=== PATIENT | female | born 1965 | race Caucasian/White ===

== ENCOUNTER 2024-11-16 15:51 | Outpatient (REF) | payer OTHER, SELFPAY ==
--- OUTSIDE RECORDS SUMMARY | 2024-11-16 19:09 | XMS_ITS | Clinical Summary ---
Author Organization [address] Address [address] [place] [phone] Phone Care Team Providers Care Administrative Services Coordinator Name Role Phone Jose Benitez MD Primary Care Provider [phone] Allergies Active Allergy Reactions Criticality Noted Date Comments Amlodipine 03/09/2019 Leg Swelling Erythromycin 11/27/2018 Other Reaction(s): Rash/Dermatitis Lisinopril 08/09/2008 cough Pioglitazone 07/01/2010 dizziness Sitagliptin 08/07/2020 Abdominal pain Medications atorvastatin (LIPITOR) 40 mg tablet Take 1 tablet (40 mg total) by mouth. 4 Active dulaglutide (Trulicity) 0.75 mg/0.5 mL pen injector injection Inject 0.5 mL (0.75 mg total) under the skin. 4 Active FLUoxetine (PROzac) 20 mg capsule Take 1 capsule (20 mg total) by mouth 1 (one) time each day. 4 Active hydroCHLOROthia zide (HYDRODIURIL) 25 mg tablet Take 1 tablet (25 mg total) by mouth 1 (one) time each day. 4 Active FREESTYLE LANCETS MISC Use once daily to check blood sugar 3 Active blood sugar diagnostic (FreeStyle Lite Strips) test strip Use once daily to check blood sugar 3 Active levothyroxine (SYNTHROID, LEVOTHROID) 100 mcg tablet Take 1 tablet (100 mcg total) by mouth. 4 Active metFORMIN (GLUCOPHAGE) 1,000 mg tablet Take 1 tablet (1,000 mg total) by mouth. 4 Active olmesartan (BENICAR) 40 mg tablet Take 1 tablet (40 mg total) by mouth 1 (one) time each day. 4 Active omeprazole (PriLOSEC) [address] capsule Take 1 capsule (20 mg total) by mouth. 8 Active atorvastatin (LIPITOR) 80 mg tablet Take 1 Tablet by mouth daily for 360 days. 4 02/16/20 25 Active dulaglutide (Trulicity) 0.75 mg/0.5 mL pen injector injection Inject 0.75 mg into the skin every 7 days. 4 Active levothyroxine (SYNTHROID, LEVOTHROID) 100 mcg tablet Take 1 Tablet by mouth every morning (before breakfast). 4 Active metFORMIN (GLUCOPHAGE) 1,000 mg tablet Take 1 Tablet by mouth 2 times daily (with meals). 4 Active meclizine (ANTIVERT) 12.5 mg tablet Take 1 tablet (12.5 mg total) by mouth 3 (three) times a day if needed for dizziness. 30 tablet 4 08/01/20 25 Active levothyroxine (SYNTHROID, LEVOTHROID) 100 mcg tablet TAKE ONE TABLET BY MOUTH EVERY MORNING BEFORE BREAKFAST 90 tablet 1 4 Active Active Problems Problem Noted Date Diagnosed Date Type II or unspecified type diabetes mellitus with neurological manifestations, uncontrolled(250.62) 06/22/2024 Leiomyoma of uterus 11/26/2023 Anxiety and depression 04/27/2023 Systolic murmur 11/30/2022 Microalbuminuria 08/31/2022 CKD (chronic kidney disease) stage 3, GFR 30-59 ml/min 08/31/2022 Obesity (BMI 30-39.9) 11/23/2017 Type II diabetes mellitus with renal manifestati ons 11/23/2017 Mixed hyperlipidemia 11/23/2008 Carpal tunnel syndrome 07/11/2008 Overview (11/26/2023): Abnormal nerve conduction, right wrist, 10/18/2007 Essential hypertension, benign 07/02/2008 Hypothyroidism 07/02/2008 Overview (11/26/2023): 0nset 1990 Fibroid 07/02/2008 Overview (11/26/2023): Embolization Immunizations Name Administration Dates Next Due Influenza Quadravalent, MDCK , 0.5ml, preservative free (Flucelvax) 6mo and older 05/26/2023,08/31/2022,09/05/2021,08/07,08/06/2019,06/06/2018 Influenza Quadravalent, MDCK , 0.5ml, with preservative (Flucelvax) 6mo and older 05/26/2017 Influenza trivalent, 0.5mL ( Fluzone High-dose) 65yo and older 08/10/2016,07/29/2015,07/11/2012,06/23,06/05/2010,06/10/2009,07/02/2008 Influenza trivalent, with pr eservative (Fluzone; Afluria) 6mo and older 08/10/2016,07/29/2015,07/11/2012,06/23,06/05/2010,06/10/2009,07/02/2008 PPD Test 10/10/2018 Pneumococcal polysaccharide 23 valent (Pneumovax 23) 2yo and older 06/10/2009 Tdap Tetanus diptheria acell ular pertussis (Boostrix; Adacel) 7yo and older 08/07/2020,06/05/2010 Surgical History Surgery Date Site/Laterality Comments OTHER SURGICAL HISTORY 11/18/2004 PROCEDURE: UTERINE FIBROID EMBOLIZATION PERQ W/RAD GID Medical History Medical History Date Comments PCOS (polycystic ovarian syndrome) DX:PCOS (polycystic ovarian syndrome) Type II or unspecified type diabetes mellitus with unspecified complication, not stated as uncontrolled DX:Type II or unspecified t ype diabetes mellitus with unspecified complication, not stated as uncontrolled Unspecified essential hypertension DX:Unspecified essential hypertension Leiomyoma of uterus DX:Leiomyoma of uterus Family History Medical History Relation Name Comments Hypertension Father Other: CAD Maternal Grandfather Thyroid disease Maternal Grandfather Arthritis Mother Thyroid disease Mother Hypothyroidi sm Relation Name Status Comments Father Maternal Grandfather Mother Social History Tobacco Use Types Packs/Day Years Used Date Smoking Tobacco: Former Cigarettes Q uit: 09/20/1997 Smokeless Tobacco: Never Tobacco Cessation:Counseling Given: Not Answered Alcohol Use Standard Drinks/Week Comments Yes 0 (1 standard drink = 0.6 oz pur e alcohol) Housing Instability Answer Date Recorde d Are you worried that in the next 2 months you may not have stable housing? No 07/31/2024 Food Access & Nutrition Answer Date Rec orded Do you have access to a vari ety of food including fruits and vegetables? Yes 07/31/2024 Access to Healthcare Answer Date Record ed Within the last 3 months, ho w many times did you visit the emergency department for your medical care? 0 07/31/2024 Health Literacy Answer Date Recorded How often do you need to hav e someone help you when you read instructions, pamphlets, or other written material from your doctor or pharmacy? Never 07/31/2024 Caregiver: How often do you need to have someone help you when you read instructions, pamphlets, or other written material from your doctor or pharmacy? Not on file 07/31/2024 Financial Risk Answer Date Recorded How hard is it for you to pa y for the very basics like food, housing, medical care, and air conditioning / heating? Not very hard 07/31/2024 Transportation Answer Date Recorded Has the lack of transportati on kept you from meetings, work, or from getting things needed for daily living? No Has the lack of transportati on kept you from medical appointments or from getting medications? No 07/31/2024 Social Isolation Answer Date Recorded How often do you feel lonely or isolated from those around you? Sometimes 07/31/2024 Food Risk Answer Date Recorded Within the past 12 months we worried whether our food would run out before we got money to buy more. Never true 07/31/2024 Within the past 12 months th e food we bought just didn't last and we didn't have money to get more. Never true 07/31/2024 Dependent Care Answer Date Recorded Do you need help finding or paying for care for your loved ones. For example, child care director or elderly care for an older adult? No 07/31/2024 Education Answer Date Recorded Do you think completing more education or training, like finishing a GED, going to college, or learning a trade, would be helpful for you? No 07/31/2024 Employment and Income Answer Date Recor ded During the last four weeks, have you been actively looking for work? No 07/31/2024 Living Situation Answer Date Recorded What is your living situation? 1 09/30/2023 Comments No Sex and Gender Information Value Date Recorded Sex Assigned at Not on file Legal Sex Female 8:49 AM EST Gender Identity Not on file Sexual Orientation Not on file Obstetrics History Last Filed Vital Signs Vital Sign Reading Time Taken Comments Blood Pressure 138/86 08/01/2024 2:37 PM EST Pulse 64 08/01/2024 2:37 PM EST Temperature 36.4 ??C (97.6 ??F) 08/01/2024 2:37 PM ES T Respiratory Rate 12 08/01/2024 2:37 PM EST Oxygen Saturation - - Inhaled Oxygen Concentration - - Weight 77.6 kg (171 lb) 08/01/2024 2:37 PM EST Height 157.5 cm (5' 2 ) 08/01/2024 2:37 PM EST Body Mass Index 31.28 08/01/2024 2:37 PM EST Plan of Treatment Upcoming Encounters Date Type Department Care Team (Late st Contact Info) Description 02/19/2025 2:00 PM EDT Office Visit Adult Medicine [address] [phone] Jose Benitez MD [address] [place] [phone] Health Maintenance Due Date Last Done Comments Breast Cancer Screening 1966 Hepatitis B Vaccines (1 of 3 - 19+ 3-dose series) 1985 Pneumococcal Vaccine: 50+ Years (2 of 2 - PCV) 06/10/2010 06/10/2009 Pneumococcal Vaccine: Pediatrics (0 to 5 Years) and At-Risk Patients (6 to 64 Years) (2 of 2 - PCV) 06/10/2010 06/10/2009 Zoster Vaccines (1 of 2) 2016 Cervical Cancer Screening: Pap Smear 08/26/2019 08/26/2016, 08/26/2016 Colorectal Cancer Screening: Colonoscopy 08/29/2022 HIV Screening 08/29/2022 Diabetes: Annual Foot Exam 08/31/2023 08/31/2022 Diabetes: Annual Retina Eye Exam 12/18/2023 12/17/2022 COVID-19 Vaccine ( season) 2024 09/19/2021, 01/05/2021, 12/13/2020 Diabetes: Blood Sugar Control Test (HGBA1C) 01/29/2025 08/01/2024, 02/21/2024, 02/21/2024, Additional history exists Depression Screening 07/31/2025 07/31/2024 Social Influencers of Health Screening 07/31/2025 07/31/2024 Diabetes: Annual Urine Albumin-Creatinine Ratio (uACR) 08/01/2025 08/01/2024, 02/21/2024, 11/26/2022 Diabetes: Annual GFR (Glomerular Filtration Rate) 08/01/2025 08/01/2024, 02/21/2024, 02/21/2024 Hypertension/CHF/CAD Annual BMP Blood Test 08/01/2025 08/01/2024, 02/21/2024, 02/21/2024 Cholesterol Screening (Lipid Panel) 08/01/2029 08/01/2024, 02/21/2024, 02/21/2024, Additional history exists DTaP,Tdap,and Td Vaccines (3 - Td or Tdap) 08/07/2030 08/07/2020, 06/05/2010 Hepatitis C Screening Completed 08/21/2020, 020 Influenza Vaccine Completed 06/19/2024, , 08/31/2022, Additional history exists HIB Vaccines Aged Out No longer eligi ble based on patient's age to complete this topic HPV Vaccines Aged Out No longer eligi ble based on patient's age to complete this topic Hepatitis A Vaccines Aged Out No long er eligible based on patient's age to complete this topic IPV Vaccines Aged Out No longer eligi ble based on patient's age to complete this topic MMR Vaccines Aged Out No longer eligi ble based on patient's age to complete this topic Meningococcal ACWY Vaccine Aged Out N o longer eligible based on patient's age to complete this topic Meningococcal B Vacine Aged Out No lo nger eligible based on patient's age to complete this topic RSV Immunization Patients Under 20 months Aged Out No longer eligible based on patient's age to complete this topic Varicella Vaccines Aged Out No longer eligible based on patient's age to complete this topic Procedures Procedure Name Priority Date/Time Associated Diagnosis Comments MICROALBUMIN CREATININE URINE RATIO Routine 08/01/2024 3:21 PM EST Type 2 diabetes mellitus with diabetic microalbuminuria, without long-term current use of insulin ([facility]) COMPREHENSIVE METABOLIC PANEL Routine 08/01/2024 3:21 PM EST Essential hypertension, benign Encounter for long-term (current) use of medications HEMOGLOBIN A1C Routine 08/01/2024 3:21 PM EST Type 2 diabetes mellitus with diabetic microalbuminuria, without long-term current use of insulin ([facility]) LIPID PANEL WITH REFLEX TO DIRECT LDL Routine 08/01/2024 3:21 PM EST Mixed hyperlipidemia HEPATITIS C SCREENING Routine 08/21/2020 PAP SMEAR Routine 08/26/2016 from Last 3 Months or Most Recently Relevant to Health Maintenance Results * (ABNORMAL) Lipid panel with reflex to direct LDL (08/01/2024 3:21 PM EST) Cholesterol 216(H) 0 - 200 mg/dL LAB CHEMISTRY METHOD 08/01/2024 6:26 PM EST [facility] Triglycerides 165(H) 0 - 150 mg/dL LAB CHEMISTRY METHOD 08/01/2024 6:26 PM EST [facility] HDL 72 >=40 mg/dL LAB CHEMISTRY METHOD 08/01/2024 6:26 PM EST [facility] LDL Calculated 111(H) 0 - 100 mg/dL LAB CHEMISTRY METHOD 08/01/2024 6:26 PM EST [facility] VLDL Cholesterol Nadeem 33 mg/dL LAB CHEMISTRY METHOD 08/01/2024 6:26 PM EST [facility] Non HDL Chol. (LDL+VLDL) 144 <145 mg/dL LAB CHEMISTRY METHOD 08/01/2024 6:26 PM EST [facility] Chol/HDL Ratio 3.0 0.0 - 4.4 LAB CHEMISTRY METHOD 08/01/2024 6:26 PM EST [facility] Blood Venous blood specimen / Unknown Venipuncture / Unknown 08/01/2024 3:21 PM EST 08/01/2024 3:21 PM EST us Jose Benitez MD LAB BLOOD ORDERABLES Final Resu lt Performing Organization Address City/[facility]/ZIP Co de Phone Number [facility] [address] [place] [address], [place] [phone] * (ABNORMAL) Microalbumin creatinine urine ratio (08/01/2024 3:21 PM EST) Creatinine, Urine 88.0 mg/dL LAB CHEMISTRY METHOD 08/01/2024 5:[address] [facility] Microalb, Ur 158.0(H) 0.0 - 29.0 mg/L LAB CHEMISTRY METHOD 08/01/2024 5:[address] [facility] Microalb/Crea t Ratio 180(H) <30 mg/g creat LAB CHEMISTRY METHOD 08/01/2024 5:02 PM EST [facility] Urine Urine specimen obtained by clean catch procedure / Unknown Non-blood Collection / Unknown 08/01/2024 3:21 PM EST 08/01/2024 3:21 PM EST us Jose Benitez MD LAB URINE ORDERABLES Final Resu lt [facility] [address] [place] [address], [place] [phone] * (ABNORMAL) Hemoglobin A1c (08/01/2024 3:21 PM EST) [facility] Hemoglobin A1C 11.2(H) <6.5 % LAB CHEMISTRY METHOD 08/01/2024 8:51 PM EST [facility] Mean Bld Glu Estim. 275 mg/dL LAB CHEMISTRY METHOD 08/01/2024 8:[address] [facility] Blood Venous blood specimen / Unknown Venipuncture / Unknown 08/01/2024 3:21 PM EST 08/01/2024 3:21 PM EST us Jose Benitez MD LAB BLOOD ORDERABLES Final Resu lt [facility] [address] [place] [address], * (ABNORMAL) Comprehensive metabolic panel (08/01/2024 3:21 PM EST) [facility] Sodium 132(L) 133 - 145 mmol/L LAB CHEMISTRY METHOD 08/01/2024 6:[address] [facility] Potassium 4.1 3.5 - 5.5 mmol/L LAB CHEMISTRY METHOD 08/01/2024 6:[address] [facility] Chloride 96 96 - 110 mmol/L LAB CHEMISTRY METHOD 08/01/2024 6:[address] [facility] CO2 27 21 - 32 mmol/L LAB CHEMISTRY METHOD 08/01/2024 6:[address] [facility] Anion Gap 9 3 - 11 LAB CHEMISTRY METHOD 08/01/2024 6:[address] [facility] Glucose 130(H) 70 - 100 mg/dL LAB CHEMISTRY METHOD 08/01/2024 6:[address] [facility] BUN 20 5 - 25 mg/dL LAB CHEMISTRY METHOD 08/01/2024 6:[address] [facility] Creatinine 1.14(H) 0.50 - 1.10 mg/dL LAB CHEMISTRY METHOD 08/01/2024 6:[address] [facility] eGFR 56(L) >=60 mL/min/1. 73m2 LAB CHEMISTRY METHOD 08/01/2024 6:[address] [facility] Comment:Calculation based on the??Chronic Kidney Disease Epidemiology Collaboration (CKD-EPI) equation refit??without adjustment for race. BUN/Creatinine Ratio 17.5 LAB CHEMISTRY METHOD 08/01/2024 6:[address] [facility] Calcium 10.1 8.5 - 10.5 mg/dL LAB CHEMISTRY METHOD 08/01/2024 6:[address] [facility] AST (SGOT) 42 10 - 42 unit/L LAB CHEMISTRY METHOD 08/01/2024 6:[address] [facility] ALT (SGPT) 34 10 - 60 unit/L LAB CHEMISTRY METHOD 08/01/2024 6:[address] [facility] Alkaline Phosphatase 117 42 - 121 unit/L LAB CHEMISTRY METHOD 08/01/2024 6:[address] [facility] Total Protein 8.1(H) 6.0 - 8.0 g/dL LAB CHEMISTRY METHOD 08/01/2024 6:[address] [facility] Albumin 4.4 3.2 - 5.0 g/dL LAB CHEMISTRY METHOD 08/01/2024 6:[address] [facility] Total Bilirubin 0.7 0.0 - 1.4 mg/dL LAB CHEMISTRY METHOD 08/01/2024 6:[address] [facility] Blood Venous blood specimen / Unknown Venipuncture / Unknown 08/01/2024 3:21 PM EST 08/01/2024 3:21 PM EST us Jose Benitez MD LAB BLOOD ORDERABLES Final Resu lt [facility] [address] [place] [address], * Hepatitis C Screening (08/21/2020) Hepatitis C Screening abstracted us Historical Provider HEALTH MAINTENANCE Final Result * Pap Smear (08/26/2016) Pap smear negative us Historical Provider HEALTH MAINTENANCE Final Result from Last 3 Months or Most Recently Relevant to Health Maintenance Insurance [facility] Care Teams Administrative Services Coordinator Relationship Specialty Start Date End Date Jose Benitez MD PCP - General Internal Medicine 07/15/15
[2024-11-20 20:08] LABS: Acetylcholine Recept. Blocking <15 (<15)
[2024-11-22 00:44] LABS: Acetylcholine Receptor Binding <0.30 nmol/L
[2024-11-23 20:32] LABS: Acetylcholine Recep Modulating <1
== END 2024-11-16 15:52 | disposition home or self-care (01) ==
LOC: HO.LAB 15:51
PROVIDERS: PCP Internal Medicine; Visit Provider Psychiatry & Neurology Neurology
DX: H02.409 Unspecified ptosis of unspecified eyelid (principal)
CPT/HCPCS: 36415; 86041; 86042; 86043